=== PATIENT | female | born 1980 | race Two or more races ===

== ENCOUNTER 2024-11-21 03:26 | Inpatient (IN) | payer MEDICAID, SELFPAY ==
[2024-11-21] VITALS (25 sets, daily range): BP systolic 117–155; BP diastolic 58–87; PULSE 49–70; RESP 12–23; TEMP 36.7–37; O2SAT 82–100; BMI 33.6
--- NOTE | 2024-11-21 | XR_ITS ---
MRI abdomen, without contrast. MRCP Date and time of exam: January 21, 2025 CT head 09 hours INDICATIONS: Abdominal pain and vomiting beginning 2 days ago, significant exit hepatic biliary tract dilatation on CT abdomen pelvis study today Technique: Multiple axial and coronal images of the abdomen have been obtained with the Siemens 1.5T MRI scanner. Images obtained included T1 weighted transverse images, T2-weighted transverse images, T2-weighted transverse images fat-suppressed, T2 weighted haste fat suppressed transverse images, T1 weighted images, in and out of phase images, T2-weighted coronal images, breath hold, T2 weighted haze coronal images as well as T2 weighted coronal thick slab images, MRCP. Findings: Intrahepatic biliary tract dilatation Absent gallbladder Enlarged common hepatic common bile duct measuring up to 12 mm with fairly abrupt termination coronal image 11 of the distal common bile duct Dilated pancreatic duct measuring 5 mm Significant edema surrounding the pancreas extending into the lower abdomen No hydronephrosis Aorta normal size Spleen not enlarged IMPRESSION: Extensive extra hepatic biliary tract dilatation, common bile duct measuring up to 12 mm with abrupt termination distally and dilated pancreatic duct, recommend ERCP follow-up to exclude malignant stricture at the ampulla Acute pancreatitis
--- NOTE | 2024-11-21 03:46 | XR_ITS ---
Examination: CT abdomen and pelvis without contrast. Coronal 3-D reconstructions. Sagittal 2-D reconstructions. Date and time of exam:November 21, 2024 at 0824 hours INDICATIONS: Generalized abdominal pain with nausea vomiting today CTDI: vol (mGy): 10.6 DLP: (mGycm): 577 Technique: Axial images of the abdomen have been obtained, 3 mm slice thickness Intravenous contrast material has not been administered. Low dose protocols were performed. One or more of the following dose reduction techniques were used; automated exposure control, adjustment of the mA and/or KV according to patient size, use of iterative reconstruction technique. Findings: Mild intrahepatic biliary tract dilatation Absent gallbladder Common bile duct 12 mm Pancreas appears prominent on this noncontrast study with surrounding edema 2 mm lower pole right renal calculus No bowel obstruction 10 mm fat-containing umbilical hernia Normal appendix No diverticulitis 18 mm left ovarian follicular cyst No bladder mass or bladder calculi Grade 1 anterolisthesis L4 on L5 IMPRESSION: Intrahepatic biliary tract dilatation as well as extrahepatic biliary tract dilatation Acute pancreatitis, consider MRCP follow-up
--- NOTE | 2024-11-21 03:46 | PD.EDRME ---
Rapid Medical Screening Exam RME Arrival date/time: 11/21/24 03:26 This is a case of 44-year-old female with no medical history came in the emergency room due to abdominal pain nausea and vomiting for 2 days persistence of the symptoms thus patient decided to start consult here in the emergency room Chief Complaint: Abdominal Pain Time Seen by Provider: 11/21/24 03:45 Vital signs: Vital Signs Temperature 98.6 F 11/21/24 03:31 Pulse Rate 70 11/21/24 03:31 Respiratory Rate 19 11/21/24 03:31 Blood Pressure 155/82 H 11/21/24 03:31 Pulse Oximetry (%) 96 11/21/24 03:31 Oxygen Delivery Method Room Air 11/21/24 03:31
[2024-11-21] MEDS: ONDANSETRON ODT 4 MG TABRAP PO (04:23)
[2024-11-21] MEDS: MORPHINE SULF INJ 10 MG/ML VIAL 4 MG IM (04:23)
[2024-11-21 05:40] LABS: Collection Type, Urine Clean Catch
[2024-11-21 05:47] LABS: Basophils # (Auto) 0.0 Thou/mm3 (0.0-0.2); Basophils % (Auto) 0 % (0-2.5); Eosinophils # (Auto) 0.0 Thou/mm3 (0.0-0.5); Eosinophils % (Auto) 0 % (0-10); Hematocrit 38.7 % (36.0-46.0); Hemoglobin 12.8 g/dL (12.0-16.0); Immature Granulocytes Auto 0.08 Thou/mm3 (0.00-0.00); Lymphocytes # (Auto) 1.0 Thou/mm3 (1.0-4.8); Lymphocytes % (Auto) 6 % (10-50); Mean Corpuscular HGB Conc 33.1 g/dl (31.0-37.0); Mean Corpuscular Hemoglobin 27.6 pg (25.0-35.0); Mean Corpuscular Volume 84 fL (80-100); Monocytes # (Auto) 0.8 Thou/mm3 (0.0-0.8); Monocytes % (Auto) 5 % (0-12); Neutrophils # (Auto) 13.1 Thou/mm3 (1.8-7.7); Neutrophils % (Auto) 87 % (37-80); Nucleated Red Blood Cell # 0.00 Thou/mm3 (0.00-0.00); Nucleated Red Blood Cell % 0 /100 WBC (0); Platelet Count 215 Thou/mm3 (140-440); RDW Standard Deviation 44.5 fL (36.4-46.3); Red Blood Count 4.63 Miln/mm3 (4.00-5.20); White Blood Count 15.0 Thou/mm3 (3.6-11.0)
[2024-11-21 05:53] LABS: HCG Qualitative,Urine Negative
[2024-11-21 05:56] LABS: Bacteria,Urine Rare; Bilirubin,Urine 2+ (Negative); Blood,Urine Negative (Negative); Clarity,Urine Turbid (Clear/Hazy); Color,Urine Drk-Yellow (Lt Yel-Yel); Glucose, Urine Negative (Negative); Ketones,Urine Trace (Negative); Leukocyte Esterase,Urine Positive (Negative); Nitrite,Urine Negative (Negative); PH,Urine 7.0 (5.0-7.0); Protein,Urine Trace (Neg - Trace); RBC,Urine 6 /hpf (0-3); Specific Gravity,Urine 1.019 (1.001-1.035); Squamous Epithelial Cell,Urine 11 /hpf (0-5); Urobilinogen,Urine 2.0 mg/dL (0.0-1.0); WBC,Urine 25 /hpf (0-5)
[2024-11-21 06:25] LABS: Alanine Aminotransferase 663 U/L (10-49); Albumin, Serum 4.4 gm/dL (3.5-5.0); Albumin/Globulin Ratio 1.6 (1.2-2.2); Alkaline Phosphatase 140 U/L (46-116); Anion Gap 12 (7-16); Aspartate Amino Transferase 495 U/L (0-34); BUN/Creatinine Ratio 10 Ratio (12-20); Bilirubin,Total 3.6 mg/dL (0.3-1.2); Blood Urea Nitrogen 7 mg/dL (9-23); Calcium 10.0 mg/dL (8.3-10.6); Calcium (Corrected) 10.0 mg/dL (8.5-10.1); Carbon Dioxide 22.2 mMol/L (20.0-31.0); Chloride 106 mMol/L (98-107); Creatinine (Component) 0.7 mg/dL (0.6-1.3); Estimated Creatinine Clearance 104.5 mL/min (>60); Globulin 2.8 gm/dL (2.3-3.5); Glucose 203 mg/dL (74-106); Lipase > 3500 U/L (12-53); Osmolality,Calculated 283 (275-295); Potassium 3.7 mMol/L (3.4-5.1); Sodium 140 mMol/L (136-145); Total Protein 7.2 gm/dL (5.7-8.2); eGFR > 60 See Note
--- NOTE | 2024-11-21 07:19 | XR_ITS ---
Examination: Abdomen sonogram, Limited Date and time of exam: November 21, 2024 0750 hours INDICATIONS: Mid abdominal pain beginning 2 days ago, elevated liver function tests on laboratory examination today Technique: Real-time rosario scale transabdominal sonographic images of the upper abdomen obtained. Findings: Absent gallbladder Common bile duct 0.9 cm no definite stones Pancreatic head 2.8 cm, suspicious for edema, please see the CT abdomen pelvis report today Liver 14.6 cm irregular contour Normal hepatopedal portal venous flow Patent IVC IMPRESSION: Acute pancreatitis Enlarged common bile duct 0.9 cm, consider MRCP follow-up
--- NOTE | 2024-11-21 08:38 | PD.EDABDPN ---
ED Abdominal Pain RME/HPI General Chief Complaint: Abdominal Pain Stated complaint: ABD PAIN Time seen by provider: 11/21/24 03:45 Arrival date/time: 11/21/24 03:26 Limitations: no limitations RME / HPI RME / HPI narrative: 11/21/24 03:26 This is a case of 44-year-old female with no medical history came in the emergency room due to abdominal pain nausea and vomiting for 2 days persistence of the symptoms thus patient decided to start consult here in the emergency room DR. PALMA MAIN ED EVALUATION: 44 year old female s/p cholecystectomy 23 years ago otherwise no other stated medical history presents to the ED for abdominal pain beginning 2 days ago progressively worsening. Described as aching in sensation that has remained constant since onset and waxing and waning in severity. Accompanied by nausea and vomiting. Denies fevers, chills, chest pain, cough, shortness of breath, diarrhea, constipation, or urinary symptoms. Related Data Home Medications ?Medication ?Instructions ?Recorded ?Confirmed Unobtainable 10/24/17 10/24/17 Allergies Allergy/AdvReac Type Severity Reaction Status Date / Time No Known Allergies Allergy Unknown Uncoded 11/21/24 03:34 Review of Systems Review of Systems Systems Reviewed: All systems reviewed, normal except as documented Past Medical History Past Medical History CARDIAC: Negative Cardiac Disorders or Congestive Heart Failure RESPIRATORY: Negative Chronic Obstructive Pulmonary Disease (COPD) GENITOURINARY: Negative Renal Disease ENDOCRINE: Negative Diabetes Mellitus Type 1 or Diabetes Mellitus Type 2 Surgical History SURGICAL: Positive Hysterectomy and Section Social History SMOKING STATUS: Never smoker ED Exam General Limitations: Present no limitations General appearance: Present alert and other (appears to be in pain) Head Head exam: Present atraumatic, normocephalic and normal inspection Eye Eye exam: Present normal appearance and EOMI ENT ENT exam: Present normal exam, normal oropharynx and mucous membranes moist Neck Neck exam: Present normal inspection, full ROM and trachea midline Chest Chest inspection: Present normal inspection and symmetric chest wall rise Respiratory Respiratory exam: Present normal lung sounds bilaterally Cardiovascular Cardiovascular exam: Present regular rate, normal rhythm and normal heart sounds Abdominal Exam Abdominal exam: Present soft, tenderness (2+ tenderness over the upper abdomen) and normal bowel sounds; Absent guarding, rebound, rigidity or mass Extremities Exam Extremities exam: Present normal inspection and full ROM Back Exam Back exam: Present normal inspection and full ROM Neurological Exam Neurological exam: Present alert, oriented X3 and CN II-XII intact Psychiatric Psychiatric exam: Present normal affect and normal mood Skin Skin exam: Present warm, dry, intact and normal color Course Course Course Narrative: 1723: MRCP has resulted and shows extensive extra hepatic biliary tract dilatation with common bile duct abrupt termination distally and dilated pancreatic duct. Transfer order placed. 1800: Patient signed out to Dr. Palma pending transfer for ERCP. 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 Stat Cons 11/21/24 17:25 Active Transfer to another facility [Transfer/Discharge] Stat Discharge 11/21/24 17:[address] abdomen pelvis wo con Stat Exams 11/21/24 03:46 Completed MR MRCP Stat Exams 11/21/24 Completed US gall bladder Stat Exams 11/21/24 07:19 Completed CBC Stat Lab 11/21/24 05:33 Completed Comprehensive Metabolic Panel Stat Lab 11/21/24 05:33 Completed HCG Qualitative,Urine Stat Lab 11/21/24 05:30 Completed Lipase Stat Lab 11/21/24 05:33 Completed Urinalysis Stat Lab 11/21/24 05:30 Completed HYDROmorphone INJ [Dilaudid Inj] Med 11/21/24 08:48 Discontinued 1 mg IVP X1 ONE HYDROmorphone INJ [Dilaudid Inj] Med 11/21/24 14:34 Discontinued 1 mg IVP X1 ONE Morphine Inj Med 11/21/24 04:12 Discontinued 4 mg IM X1 ONE Ondansetron Inj [Zofran Inj] Med 11/21/24 08:48 Discontinued 4 mg IVP X1 ONE Ondansetron Inj [Zofran Inj] Med 11/21/24 14:34 Discontinued 4 mg IVP X1 ONE Ondansetron Odt [Zofran Odt] Med 11/21/24 04:12 Discontinued 4 mg PO X1 ONE Vital Signs Vital signs: Vital Signs Temperature 98.6 F 11/21/24 03:31 Pulse Rate 70 11/21/24 03:31 Respiratory Rate 19 11/21/24 03:31 Blood Pressure 155/82 H 11/21/24 03:31 Pulse Oximetry (%) 96 11/21/24 03:31 Oxygen Delivery Method Room Air 11/21/24 03:31 Pulse ox is 96% on room air which is adequate. Abdominal Pain MDM MDM Narrative MDM Narrative:: Zoe Salas, jose scribing for and in the presence of Dr. Palma. Patient data External records reviewed:: [facility] previous records (I reviewed ED visit on 10/24/2017 ) Clinical information provided by:: patient Social determinants that could affect healthcare access:: none Patient has the following chronic illnesses:: None reported How is presenting disease/condition affected by chronic disease/condition?: no chronic disease Evaluation data The following diagnostics were reviewed and interpreted by me:: lab results and radiology exam(s) Lab and/or radiology exams considered but not ordered:: None Interpretation Summary: Ordering Physician: Shelby Hess Date of Service: 11/21/24 Procedure(s): CT abdomen pelvis wo con Accession Number(s): [id number] cc: Ben Quigley MD; Jluis Lockhart MD; Shelby Hess~ Examination: CT abdomen and pelvis without contrast. Coronal 3-D reconstructions. Sagittal 2-D reconstructions. Date and time of exam:November 21, 2024 at 0824 hours INDICATIONS: Generalized abdominal pain with nausea vomiting today CTDI: vol (mGy): 10.6 DLP: (mGycm): 577 Technique: Axial images of the abdomen have been obtained, 3 mm slice thickness Intravenous contrast material has not been administered. Low dose protocols were performed. One or more of the following dose reduction techniques were used; automated exposure control, adjustment of the mA and/or KV according to patient size, use of iterative reconstruction technique. Findings: Mild intrahepatic biliary tract dilatation Absent gallbladder Common bile duct 12 mm Pancreas appears prominent on this noncontrast study with surrounding edema 2 mm lower pole right renal calculus No bowel obstruction 10 mm fat-containing umbilical hernia Normal appendix No diverticulitis 18 mm left ovarian follicular cyst No bladder mass or bladder calculi Grade 1 anterolisthesis L4 on L5 IMPRESSION: Intrahepatic biliary tract dilatation as well as extrahepatic biliary tract dilatation Acute pancreatitis, consider MRCP follow-up Dictated By: Jluis Lockhart MD Signed By: <Electronically signed by Jluis Lockhart MD in OV> 11/21/24 0944 Ordering Physician: Sampson Palma MD Date of Service: 11/21/24 Procedure(s): US gall bladder Accession Number(s): [id number] cc: Sampson Palma MD; Ben Quigley MD; Jluis Lockahrt MD~ Examination: Abdomen sonogram, Limited Date and time of exam: November 21, 2024 0750 hours INDICATIONS: Mid abdominal pain beginning 2 days ago, elevated liver function tests on laboratory examination today Technique: Real-time rosario scale transabdominal sonographic images of the upper abdomen obtained. Findings: Absent gallbladder Common bile duct 0.9 cm no definite stones Pancreatic head 2.8 cm, suspicious for edema, please see the CT abdomen pelvis report today Liver 14.6 cm irregular contour Normal hepatopedal portal venous flow Patent IVC IMPRESSION: Acute pancreatitis Enlarged common bile duct 0.9 cm, consider MRCP follow-up Dictated By: Jluis Lockhart MD Signed By: <Electronically signed by Jluis Lockhart MD in OV> 11/21/24 0957 Ordering Physician: Sampson Palma MD Date of Service: 11/21/24 Procedure(s): MR MRCP Accession Number(s): [id number] cc: Sampson Palma MD; Ben Quigley MD; Jluis Lockhart MD~ MRI abdomen, without contrast. MRCP Date and time of exam: January 21, 2025 CT head 09 hours INDICATIONS: Abdominal pain and vomiting beginning 2 days ago, significant exit hepatic biliary tract dilatation on CT abdomen pelvis study today Technique: Multiple axial and coronal images of the abdomen have been obtained with the Siemens 1.5T MRI scanner. Images obtained included T1 weighted transverse images, T2-weighted transverse images, T2-weighted transverse images fat-suppressed, T2 weighted haste fat suppressed transverse images, T1 weighted images, in and out of phase images, T2-weighted coronal images, breath hold, T2 weighted haze coronal images as well as T2 weighted coronal thick slab images, MRCP. Findings: Intrahepatic biliary tract dilatation Absent gallbladder Enlarged common hepatic common bile duct measuring up to 12 mm with fairly abrupt termination coronal image 11 of the distal common bile duct Dilated pancreatic duct measuring 5 mm Significant edema surrounding the pancreas extending into the lower abdomen No hydronephrosis Aorta normal size Spleen not enlarged IMPRESSION: Extensive extra hepatic biliary tract dilatation, common bile duct measuring up to 12 mm with abrupt termination distally and dilated pancreatic duct, recommend ERCP follow-up to exclude malignant stricture at the ampulla Acute pancreatitis Dictated By: Jluis Lockhart MD Signed By: <Electronically signed by Jluis Lockhart MD in OV> 11/21/24 1717 Medications / Prescriptions Medications or Prescriptions considered but not ordered:: None Medication administrations:: Medication Administration History Discontinued Medications Hydromorphone HCl (Hydromorphone Inj 2 Mg/Ml Vial) 1 mg IVP X1 ONE Stop: 11/21/24 08:49 Last Admin: 11/21/24 09:08 Dose: 1 mg Documented By: LOLA Hydromorphone HCl (Hydromorphone Inj 2 Mg/Ml Vial) 1 mg IVP X1 ONE Stop: 11/21/24 14:35 Last Admin: 11/21/24 14:44 Dose: 1 mg Documented By: LOLA Morphine Sulfate (Morphine Sulf Inj 10 Mg/Ml Vial) 4 mg IM X1 ONE Stop: 11/21/24 04:13 Last Admin: 11/21/24 04:23 Dose: 4 mg Documented By: DONNY Ondansetron HCl (Ondansetron Odt 4 Mg Tabrap) 4 mg PO X1 ONE; Protocol Stop: 11/21/24 04:13 Last Admin: 11/21/24 04:23 Dose: 4 mg Documented By: DONNY Ondansetron HCl (Ondansetron Inj 2 Mg/Ml Inj 2 Ml) 4 mg IVP X1 ONE; Protocol Stop: 11/21/24 08:49 Last Admin: 11/21/24 09:07 Dose: 4 mg Documented By: LOLA Ondansetron HCl (Ondansetron Inj 2 Mg/Ml Inj 2 Ml) 4 mg IVP X1 ONE; Protocol Stop: 11/21/24 14:35 Last Admin: 11/21/24 14:44 Dose: 4 mg Documented By: LOLA See above Consultations Consultation(s) initiated? (list below): No Diagnosis Differential diagnosis abdominal pain: abdominal pain, calculus of kidney, diverticulitis and pancreatitis Most likely diagnosis given after review of the tests above:: Acute pancreatitis Extrahepatic biliary duct tract dilatation Admission Indicated Admission indicated?: not indicated Explain why admission is indicated or not indicated:: Transfer for ERCP Admission Request Was there a request for admission?: No Disposition Plan Disposition Plan: other (specify) (Signed out to Dr. Ku pending transfer for ERCP ) Discharge Plan Prescriptions/Referrals Prescriptions/Med Rec: No Action Unobtainable Referrals: Ben Quigley MD [Primary Care Provider] - In 1 week Problem List Clinical Impression: Acute pancreatitis, Dilation of biliary tract Patient/Caregiver Discharge Instructions Print Language: Estonian
[2024-11-21] MEDS: ONDANSETRON INJ 2 MG/ML INJ 2 ML 4 MG IVP ×3 (09:07→19:31)
[2024-11-21] MEDS: HYDROmorphone INJ 2 MG/ML VIAL 1 MG IVP ×2 (09:08→14:44)
--- NOTE | 2024-11-21 14:30 | PC.NURSE ---
CALLED ESTHER IN MRI WHEN SHE WILL TAKE PT. SHE ASKED IF MRI SCREENING HAD BEEN DONE AND IT HAD BEEN DONE IN THE MORNING. SHE SAID SHE WOULD CHECK AGAIN.
--- NOTE | 2024-11-21 18:41 | PD.EDADDENDU ---
Emergency Room Addendum <Kim Quigley - Last Filed: 11/21/24 19:53> Addendum Narrative: I took over the care from previous shift physician, Dr. Fountain, at 6 PM on 11/21/24. See previous notes for complete H & P and ED course. I reviewed all diagnostic test results. Diagnoses include: Treatment here from me included Dilaudid and Zofran. I discussed the case with Dr. Lynn, power transformer repairer, and our hospitalist. About the presentation and exam and diagnostics and treatments here. And need of further care in the hospital. Will accept the patient Srinivasa Ku MD <Srinivasa Ku MD - Last Filed: 11/21/24 23:07> Addendum Narrative: I took over the care from previous shift physician, Dr. Fountain, at 6 PM on 11/21/24. See previous notes for complete H & P and ED course. I reviewed all diagnostic test results. Diagnoses include: Pancreatitis CBD obstruction LFT elevation I discussed the case with Dr. Lynn, our ERCP power transformer repairer, and our hospitalist. About the presentation and exam and diagnostics and treatments here. And need of further care in the hospital. Will accept the patient Srinivasa Ku MD
[2024-11-21] MEDS: HYDROmorphone INJ 2 MG/ML VIAL IVP (19:32)
--- NOTE | 2024-11-21 19:42 | PC.NURSE ---
report recieved from swathi SHERWOOD. pt resting wioth at bedside. pain med givenscll monitor. waiting for rm assignment.
--- NOTE | 2024-11-21 21:21 | PD.RESHP ---
Documentation for date of: 11/21/24 HPI History of Present Illness Chief complaint: N/V with abdominal pain History of present illness: 44 w/o F without significant PMHx presents with chief complaint of nausea, vomiting, progressively worsening abdominal pain x 2 days. Patient states she was in her usual state of health until 11/19/2024 when she woke up in the middle of the night with severe abdominal pain. Pain continued to progressively worsen since then. Patient also notes poor appetite during this time, only intaking tea and Gatorade. Patient also reports mild shortness of breath due to abdominal pain with deep inspiration. Patient has never experienced symptoms like this in the past. Patient denies fever, chills, chest pain, dysuria. ED COURSE: Labs significant for: WBC 15.0. BUN 7. Lipase greater than 3.5K. T. bili 3.6, AST 495, ALT 663, ALP 140. Imaging significant for: CT showing acute pancreatitis. MRCP showing 12 mm CBD dilation with abrupt termination. Patient received IV Dilaudid and Zofran in the ED. Afebrile, vitals WNL. Saturating well on room air. PMH: None PSH: , hysterectomy SH: Denies alcohol, tobacco, illicit drug use Allergies:?None Medications: None Review of Systems Review of Systems Systems Reviewed: All systems reviewed, normal except as documented Past Medical History Past Medical History Comments PMH COMMENT: PMH: None PSH: , hysterectomy SH: Denies alcohol, tobacco, illicit drug use Allergies:?None Medications: None Exam Vital Signs Temp Pulse Resp BP Pulse Ox O2 Del Method 98.3 F 64 16 142/85 H 100 Room Air 11/21/24 20:15 11/21/24 20:15 11/21/24 20:15 11/21/24 20:15 11/21/24 20:15 11/21/24 20:15 Narrative Exam PE: Gen: Well-developed and well-nourished. Mild distress. HEENT: NCAT, PERRLA, EOMI, MMM, anicteric conjunctivae. CVS: normal S1 and S2. RRR. No M/R/G. Resp: CTA B/L. No rhonchi, rales, crackles or wheezing. Abd: soft, non-distended. Significant tenderness epigastric region. MSK: Good ROM in BUE & BLE. No edema or rash. Neuro: CN II-XII grossly intact. Strength 5/5 in BUE & BLE. Alert and oriented x3. Psych: appropriate mood and affect. Results: Labs 11/21/24 05:33 11/21/24 05:33 Labs: Short CBC 11/21/24 Range/Units 05:33 WBC 15.0 H (3.6-11.0) Thou/mm3 Hgb 12.8 (12.0-16.0) g/dL Hct 38.7 (36.0-46.0) % Plt Count 215 (140-440) Thou/mm3 BMP 11/21/24 05:33 Sodium 140 Potassium 3.7 Chloride 106 Carbon Dioxide 22.2 BUN 7 L Creatinine 0.7 Glucose 203 H Calcium 10.0 Liver Function 11/21/24 Range/Units 05:33 Total Bilirubin 3.6 H (0.3-1.2) mg/dL AST 495 H (0-34) U/L ALT 663 H* (10-49) U/L Alkaline Phosphatase 140 H (46-116) U/L Albumin 4.4 (3.5-5.0) gm/dL Urine 11/21/24 Range/Units 05:30 Urine Color Drk-Yellow A (Lt Yel-Yel) Urine Clarity Turbid A (Clear/Hazy) Urine pH 7.0 (5.0-7.0) Ur Specific [place] 1.019 (1.001-1.035) Urine Protein Trace (Neg - Trace) Urine Glucose (UA) Negative (Negative) Quality Measures Quality Measures VTE prophylaxis Medications Home Medications and Allergies Home Medications ?Medication ?Instructions ?Recorded ?Confirmed ?Type Unobtainable 10/24/17 10/24/17 History Allergies Allergy/AdvReac Type Severity Reaction Status Date / Time No Known Allergies Allergy Unknown Uncoded 11/21/24 03:34 Visit Medications Acetaminophen (Acetaminophen Supp 650 Mg Supp) 650 mg NC Q6HR PRN PRN Reason: Fever > 100.4 or pain Stop: 12/21/24 21:12 Lactated Ringer's (Lactated Ringers) 1,000 mls @ 125 mls/hr IV .Q8H CECIL Stop: 11/22/24 21:14 Piperacillin/Tazobactam/Dextrose (Zosyn) 50 mls @ 100 mls/hr IV Q8HR CECIL Stop: 11/28/24 21:18 Morphine Sulfate (Morphine Sulf Inj 10 Mg/Ml Vial) 4 mg IVP Q4HR PRN PRN Reason: PAIN SCALE 7-10 (Severe Stop: 11/26/24 21:12 Ondansetron HCl (Ondansetron Inj 2 Mg/Ml Inj 2 Ml) 4 mg IVP Q4HR PRN; Protocol PRN Reason: NAUSEA OR VOMITING Stop: 12/21/24 21:12 Discontinued Medications Hydromorphone HCl (Hydromorphone Inj 2 Mg/Ml Vial) 1 mg IVP X1 ONE Stop: 11/21/24 08:49 Last Admin: 11/21/24 09:08 Dose: 1 mg Hydromorphone HCl (Hydromorphone Inj 2 Mg/Ml Vial) 1 mg IVP X1 ONE Stop: 11/21/24 14:35 Last Admin: 11/21/24 14:44 Dose: 1 mg Hydromorphone HCl (Hydromorphone Inj 2 Mg/Ml Vial) 2 mg IVP X1 ONE Stop: 11/21/24 18:50 Last Admin: 11/21/24 19:32 Dose: 2 mg Morphine Sulfate (Morphine Sulf Inj 10 Mg/Ml Vial) 4 mg IM X1 ONE Stop: 11/21/24 04:13 Last Admin: 11/21/24 04:23 Dose: 4 mg Ondansetron HCl (Ondansetron Odt 4 Mg Tabrap) 4 mg PO X1 ONE; Protocol Stop: 11/21/24 04:13 Last Admin: 11/21/24 04:23 Dose: 4 mg Ondansetron HCl (Ondansetron Inj 2 Mg/Ml Inj 2 Ml) 4 mg IVP X1 ONE; Protocol Stop: 11/21/24 08:49 Last Admin: 11/21/24 09:07 Dose: 4 mg Ondansetron HCl (Ondansetron Inj 2 Mg/Ml Inj 2 Ml) 4 mg IVP X1 ONE; Protocol Stop: 11/21/24 14:35 Last Admin: 11/21/24 14:44 Dose: 4 mg Ondansetron HCl (Ondansetron Inj 2 Mg/Ml Inj 2 Ml) 4 mg IVP X1 ONE; Protocol Stop: 11/21/24 18:50 Last Admin: 11/21/24 19:31 Dose: 4 mg Assessment & Plan Plan 44 w/o F without significant PMHx presents with chief complaint of nausea, vomiting, progressively worsening abdominal pain x 2 days, admitted for choledocholithiasis with gallstone pancreatitis. #Choledocholithiasis with acute liver injury #Gallstone pancreatitis Patient presents with chief complaint of abdominal pain with associated nausea and vomiting x 2 days. Lipase greater than 3.5 thousand, acute pancreatitis seen on CT. MRCP showed 12 mm CBD dilation with abrupt termination, suspect gallstone pancreatitis. BUN 7. In addition, patient has acute liver injury: T. bili 3.6, AST 495, ALT 6X3, ALP 140. Patient noted to have significant epigastric tenderness, improved with IV pain meds. Patient's had poor appetite since symptoms began. Patient denies fevers, chills. Dr. Lynn on board, plan for ERCP tomorrow morning. - IVF: LR at 125 mL/h x 3 L - Pain control with IV morphine - IV Zofran for nausea - Dr. Lynn consulted, appreciate recommendations - N.p.o. - Zosyn 3.375 g IV every 8 hours (started 11/21) DVT prophylaxis: SCDs GI prophylaxis: None Diet: N.p.o. Lines: Peripheral IV Code status: Full code Plan of care discussed with attending Dr. Bell. Javi Farias MD PGY?2 Attending Provider Attestation/Addendum I have examined the patient, reviewed labs and imaging findings, discussed the case with the resident(s), and reviewed entered orders. I agree with the plan of care as outlined in this note, with these additional summaries/recommendations: After examination of the patient and review of the clinical data, I feel that this patient needs admission to the hospital for further treatment and evaluation. Patient is a 44-year-old female with no significant past medical history who presents to [facility] emergency department on 11/21/2024 with chief complaint of intractable abdominal pain. Patient and patient's seen at bedside. She endorsed severe abdominal pain rated 10 out of 10 in severity on admission that has improved with IV pain medicines. Patient diagnosed with acute pancreatitis most likely secondary to gallstones, choledocholithiasis, and transaminitis. Patient meets 3 out of 3 diagnostic criteria for acute pancreatitis. Etiology most likely secondary to gallstones. BISAP score 0 points indicating less than 1% risk of mortality. Pierre-Imrie pancreatitis score 2 points indicating low risk for severe pancreatitis. Start 5 to 10 cc/kg of body weight per hour of IV maintenance fluids. As needed pain management. NPO. MRCP on admission showed common bile duct dilation measuring up to 12 mm with abrupt termination distally likely representing choledocholithiasis. Gastroenterology consulted by emergency room provider and recommends admission for ERCP. Leukocytosis present. Start IV antibiotic. Patient also found to have transaminitis and hyperbilirubinemia which is most likely secondary to choledocholithiasis. We will avoid hepatotoxic agents and hepatically dose medications if necessary. I anticipate improvement in transaminitis after ERCP. Patient updated on the plan and in agreement. All questions answered to satisfaction. Please see residents note for additional details and management. Dr. Ray MD
[2024-11-21] MEDS: RINGERS LACTATED 1000 ML 1,000 ML 125 ML IV (22:00)
[2024-11-21] MEDS: PIPER/TAZO 3.375 GM PREMIX 3.375 GM/50 ML BAG IV (22:00)
[2024-11-22] VITALS (9 sets, daily range): BP systolic 106–162; BP diastolic 59–99; PULSE 59–87; RESP 16–29; TEMP 36.3–36.7; O2SAT 91–97; BMI 34.0
[2024-11-22] MEDS: MORPHINE SULF INJ 10 MG/ML VIAL 4 MG IVP ×6 (01:46→22:37)
[2024-11-22] MEDS: PIPER/TAZO 3.375 GM PREMIX 3.375 GM/50 ML BAG IV ×3 (05:46→21:44)
[2024-11-22] MEDS: RINGERS LACTATED 1000 ML 1,000 ML 125 ML IV (05:46)
[2024-11-22 05:59] LABS: Basophils # (Auto) 0.0 Thou/mm3 (0.0-0.2); Basophils % (Auto) 0 % (0-2.5); Eosinophils # (Auto) 0.0 Thou/mm3 (0.0-0.5); Eosinophils % (Auto) 0 % (0-10); Hematocrit 37.1 % (36.0-46.0); Hemoglobin 12.2 g/dL (12.0-16.0); Immature Granulocytes Auto 0.09 Thou/mm3 (0.00-0.00); Lymphocytes # (Auto) 1.0 Thou/mm3 (1.0-4.8); Lymphocytes % (Auto) 6 % (10-50); Mean Corpuscular HGB Conc 32.9 g/dl (31.0-37.0); Mean Corpuscular Hemoglobin 27.8 pg (25.0-35.0); Mean Corpuscular Volume 85 fL (80-100); Monocytes # (Auto) 1.1 Thou/mm3 (0.0-0.8); Monocytes % (Auto) 7 % (0-12); Neutrophils # (Auto) 15.2 Thou/mm3 (1.8-7.7); Neutrophils % (Auto) 87 % (37-80); Nucleated Red Blood Cell # 0.00 Thou/mm3 (0.00-0.00); Nucleated Red Blood Cell % 0 /100 WBC (0); Platelet Count 222 Thou/mm3 (140-440); RDW Standard Deviation 46.3 fL (36.4-46.3); Red Blood Count 4.39 Miln/mm3 (4.00-5.20); White Blood Count 17.5 Thou/mm3 (3.6-11.0)
[2024-11-22 06:16] LABS: INR 1.0 (0.9-1.3); Partial Thromboplastin Time 21.8 Seconds (22.0-36.0); Prothrombin Time 11.4 Seconds (9.0-12.2)
[2024-11-22 06:35] LABS: Alanine Aminotransferase 451 U/L (10-49); Albumin, Serum 3.9 gm/dL (3.5-5.0); Albumin/Globulin Ratio 1.6 (1.2-2.2); Alkaline Phosphatase 182 U/L (46-116); Anion Gap 11 (7-16); Aspartate Amino Transferase 194 U/L (0-34); BUN/Creatinine Ratio 15 Ratio (12-20); Bilirubin,Total 4.0 mg/dL (0.3-1.2); Blood Urea Nitrogen 9 mg/dL (9-23); Calcium 9.1 mg/dL (8.3-10.6); Calcium (Corrected) 9.2 mg/dL (8.5-10.1); Carbon Dioxide 24.3 mMol/L (20.0-31.0); Cardiac Risk Estimate 2.5 RATIO (3.7-5.6); Chloride 106 mMol/L (98-107); Cholesterol 133 mg/dL (132-200); Creatinine (Component) 0.6 mg/dL (0.6-1.3); Estimated Creatinine Clearance 122.6 mL/min (>60); Globulin 2.4 gm/dL (2.3-3.5); Glucose 108 mg/dL (74-106); HDL Cholesterol 53 mg/dL (40-60); LDL Cholesterol,Calculated 61 mg/dL (0-130); Magnesium 2.0 mg/dL (1.6-2.6); Osmolality,Calculated 280 (275-295); Phosphorous 3.5 mg/dL (2.4-5.1); Potassium 3.6 mMol/L (3.4-5.1); Sodium 141 mMol/L (136-145); Total Protein 6.3 gm/dL (5.7-8.2); Triglycerides 93 mg/dL (30-150); eGFR > 60 See Note
--- NOTE | 2024-11-22 09:34 | PC.SS ---
Follow up note: ERCP today. Patient's status is showing self pay. SS spoke to Lidia, financial institution president who explained pt has [employer] and her facehseet has been updated.
--- NOTE | 2024-11-22 11:42 | ESPR_ITS ---
<Statement entered by Sascha Munoz MD - 11/22/24 18:53> Patient was seen and examined at bedside. I agree on the assessment and plan on this note as documented by resident Shawnee Casillas MD PGY1. 44-year-old female with past medical history as below admitted for gallstone pancreatitis, was evaluated by gastroenterology today per GI patient has likely passed her gallstone, recommend continuing IV fluid Ringer lactate at 250 cc/h, will trend CRP daily per GI recommendations. Will continue IV Zosyn, does have urinary tract infection. Diet advanced to clear liquid per GI recommendations, no ERCP indicated per gastroenterology. Disposition telemetry management of pancreatitis. Case discussed with attending Dr. Elizabeth Munoz MD PGY-2 Documentation for date of: 11/22/24 Subjective Subjective Interval history: Today patient was seen and examined at beside. She is in mild distress. Denies nausea, vomiting, shortness of breath and chest pain. Continue to endorse epigastric pain. AM labs reviewed. Significant for WBC 17.5. Vitals are within normal limit. Dr. Lynn consulted and finds no indication for ERCP at this time there is no evidence of choledocholithiasis. Will continue to manage patient with IV fluids and pain control. Started Piperacillin/tazobactam 3.375 (11/22)- Exam Vital Signs Temp Pulse Resp BP Pulse Ox O2 Del Method 97.8 F 68 16 118/59 L 94 L Room Air 11/22/24 08:00 11/22/24 08:00 11/22/24 08:00 11/22/24 08:00 11/22/24 08:00 11/22/24 08:00 Narrative Exam PE: Gen: Well-developed and well-nourished. Mild distress. HEENT: NCAT, PERRLA, EOMI, MMM, anicteric conjunctivae. CVS: normal S1 and S2. RRR. No M/R/G. Resp: CTA B/L. No rhonchi, rales, crackles or wheezing. Abd: soft, non-distended. Significant tenderness epigastric region. No megan sign, no greyturner sign MSK: Good ROM in BUE & BLE. No edema or rash. Neuro: CN II-XII grossly intact. Strength 5/5 in BUE & BLE. Alert and oriented x3. Psych: appropriate mood and affect. Objective Labs 11/22/24 05:12 11/22/24 05:12 Labs: Laboratory Results - last 24 hr 11/22/24 05:12 WBC 17.5 H RBC 4.39 Hgb 12.2 Hct 37.1 MCV 85 MCH 27.8 MCHC 32.9 RDW Std Deviation 46.3 Plt Count 222 Neut % (Auto) 87 H Lymph % (Auto) 6 L [place] % (Auto) 7 Eos % (Auto) 0 Baso % (Auto) 0 Neut # (Auto) 15.2 H Lymph # (Auto) 1.0 [place] # (Auto) 1.1 H Eos # (Auto) 0.0 Baso # (Auto) 0.0 Immature Gran # (Auto) 0.09 H Absolute Nucleated RBC 0.00 Immature Gran % 1 H Nucleated RBC % 0 PT 11.4 INR 1.0 APTT 21.8 L Sodium 141 Potassium 3.6 Chloride 106 Carbon Dioxide 24.3 Anion Gap 11 BUN 9 Creatinine 0.6 Estim Creat Clear Calc 122.6 eGFR > 60 BUN/Creatinine Ratio 15 Glucose 108 H D Calculated Osmolality 280 Calcium 9.1 Corrected Calcium 9.2 Phosphorus 3.5 Magnesium 2.0 Total Bilirubin 4.0 H AST 194 H ALT 451 H Alkaline Phosphatase 182 H D Total Protein 6.3 Albumin 3.9 D Globulin 2.4 Albumin/Globulin Ratio 1.6 Triglycerides 93 Cholesterol 133 LDL Cholesterol, Calc 61 HDL Cholesterol 53 Cholesterol/HDL Ratio 2.5 L Quality Measures Quality Measures VTE prophylaxis Assessment & Plan Assessment Current Active Medications: Generic Name Dose Route Start Last Admin Trade Name Jeffry PRN Reason Stop Dose Admin Acetaminophen 650 mg 11/21/24 21:13 Acetaminophen Supp 650 Mg Supp TN 12/21/24 21:12 Q6HR PRN Fever > 100.4 or pain 1-3 Lactated Ringer's 1,000 mls @ 125 mls/hr 11/21/24 21:15 11/22/24 05:46 Lactated Ringers IV 11/22/24 21:14 125 mls/hr .Q8H CECIL Administration Piperacillin/Tazobactam/Dextrose 3.375 gm in 50 mls @ 12.5 mls/hr 11/22/24 06:00 11/22/24 05:46 Zosyn IV 11/29/24 05:59 12.5 mls/hr Q8HR CECIL Administration Morphine Sulfate 4 mg 11/21/24 21:13 11/22/24 10:11 Morphine Sulf Inj 10 Mg/Ml Vial IVP 11/26/24 21:12 4 mg Q4HR PRN Administration PAIN SCALE 7-10 (Severe Ondansetron HCl 4 mg 11/21/24 21:13 Ondansetron Inj 2 Mg/Ml Inj 2 Ml IVP 12/21/24 21:12 Q4HR PRN NAUSEA OR VOMITING Protocol Plan 44-year-old female past medical significant for gestational diabetes, cholecystectomy presented to [facility] ED on 11/21/24 for nausea and vomiting, progressively worsening abdominal pain for 2 days. Admitted for acute pancreatitis management. # Acute pancreatitis 2/2 #Gallstones #Transaminitis Patient presents with chief complaint of abdominal pain with associated nausea and vomiting x 2 days. Lipase greater than 3.5 thousand, acute pancreatitis seen on CT. MRCP showed 12 mm CBD dilation with abrupt termination, suspect gallstone pancreatitis. BUN 7. In addition, patient has acute liver injury: T. bili 3.6, AST 495, ALT 6X3, ALP 140. Patient noted to have significant epigastric tenderness, improved with IV pain meds. Patient's had poor appetite since symptoms began. Patient denies fevers, chills. Dr. Lynn on board, no indication for ERCP since there is no evidence of choledocholithiasis.BISAP score 0 points indicating less than 1% risk of mortality. Kamrar-Imrie pancreatitis score 2 points indicating low risk for severe pancreatitis. Plan - IV Pain control with morphine 4mg IVP PRN - IV LR fuids - Check LFTs CBC daily - Trend CRP daily - Resume clier liquid diet - Continue to monitor vital - Continue Zofran for nausea - ERCP- no indication per GI # Urinary tract infection Patient is asymptomatic, but UA positive for leukocyte Esterase, Pyuria (WBC25) Plan -Continue Zosyn 3.375gm (11/22) Hospital management: Lines: peripheral IV Diet: Clear liquid diet GI prophylaxis: none DVT prophylaxis: SCDs Disposition: tele bed, choledocholithiasis with pancreatitis CODE STATUS: Full code Patient seen and assessed under supervision of attending physician and discuss with senior resident Dr. Munoz PGY-2 Shawnee Casillas MD PGY-1, Internal Medicine Attending Provider Attestation/Addendum I attest that I was physically present for the evaluation, physical examination, lab and imaging review of the patient with the residents. I discussed the case with the residents and agree with the findings and plans of care as documented above. At bedside today, patient continues to complain of abdominal pain mostly epigastric. Has severe tenderness on palpation but abdomen is soft, no guarding. WBC up trended to 17.5, bilirubin is also uptrending, AST and ALT are improving. Discussed with GI, recommended aggressive hydration for pancreatitis and hold off on ERCP at this time. Started on clear liquid diet, we will slowly advance as tolerated. Continues to be on analgesic regimen. We will also continue with IV Zosyn for UTI. Elizabeth Hyman MD
--- NOTE | 2024-11-22 12:15 | PC.SS ---
SS met with patient regarding her d/c plan. Pt is alert/oriented. Pt was admitted for Choledocholithiasis with Pancreatitis. Pt confirmed demographic and contact information is correct on facesheet. Pt resides with . Pt ambulates independently without assistance or DME. Pt is ok with all ADLs. 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 Patient?s pharmacy of choice is [facility] on [address] Pt named her , Ronal Patel medical decision maker if he is unable. Patient?s choice is to return home upon d/c. Pt states she is not diabetic and is not on dialysis. D/C plan: Return home Next of Kin: Ronal Patel, , phone# [phone] PCP: [facility] Address: Correct on facesheet
--- NOTE | 2024-11-22 13:07 | PC.NURSE ---
Dr. Lynn came in to speak with patient about cancelling ERCP procedure. stated they will watch for inflammation and left room. Patient had questions so this nurse was able to locate Resident Alexander to come back to patient's room and answer her questions. He answered her questions and informed her that she will continue ABX and fluids and will be monitored for 2 days. Patient stated that she understood.
--- NOTE | 2024-11-22 14:09 | PD.IMCONS ---
HPI Data of Consult Requesting Physician: Luis Bell MD Primary Care Provider: Ben Quigley MD Consult Narrative History of present illness: Chief complaint: Abdominal pain History of present illness: Patient is a 44-year-old female with obesity and metabolic syndrome presented with abdominal pain based on the workup including CAT scan/MRCP and blood work patient has gallstone pancreatitis. GI was called to evaluate the patient. Patient was seen and examined on the floor there is no indication to proceed with an ERCP at this time. Abdominal pain has improved since last night. No other associated symptoms at this time. cc:: cc: Luis Bell MD Review of Systems Review of Systems Narrative Review of Systems: All 12 systems reviewed and negative except positive pertinent symptoms as per history history and physical. Meds Home Medications and Allergies Home Medications ?Medication ?Instructions ?Recorded ?Confirmed ?Type No Known Home Medications 11/22/24 11/22/24 History Allergies Allergy/AdvReac Type Severity Reaction Status Date / Time No Known Allergies Allergy Unverified 11/22/24 08:15 Exam Vital Signs Temp Pulse Resp BP Pulse Ox O2 Del Method 97.7 F 77 16 127/64 95 Room Air 11/22/24 12:00 11/22/24 12:00 11/22/24 12:00 11/22/24 12:00 11/22/24 12:00 11/22/24 12:00 Routine Abdominal Exam Comments: Abdominal exam benign no tenderness or rebound tenderness no peritonitis. Results Labs 11/22/24 05:12 11/22/24 05:12 Labs: Short CBC 11/22/24 Range/Units 05:12 WBC 17.5 H (3.6-11.0) Thou/mm3 Hgb 12.2 (12.0-16.0) g/dL Hct 37.1 (36.0-46.0) % Plt Count 222 (140-440) Thou/mm3 BMP 11/22/24 05:12 Sodium 141 Potassium 3.6 Chloride 106 Carbon Dioxide 24.3 BUN 9 Creatinine 0.6 Glucose 108 H D Calcium 9.1 Liver Function 11/22/24 Range/Units 05:12 Total Bilirubin 4.0 H (0.3-1.2) mg/dL AST 194 H (0-34) U/L ALT 451 H (10-49) U/L Alkaline Phosphatase 182 H D (46-116) U/L Albumin 3.9 D (3.5-5.0) gm/dL Assessment and Plan Additional Assessment & Plan Additional Plan: Assessment: Gallstone pancreatitis Plan of care: Proceed with LR 250-20 4 to 48 hours There is no indication to proceed with the ERCP at this point as there is no evidence of choledocholithiasis. Check LFT and CBC daily Trend CRP daily No need to trace lipase daily Start clear liquid diet and advance as per toleration Patient needs to follow with Dr. Lynn's office in 2 to 4 weeks postdischarge Call GI with any question.
[2024-11-22 14:26] LABS: Alanine Aminotransferase 373 U/L (10-49); Albumin, Serum 3.8 gm/dL (3.5-5.0); Alkaline Phosphatase 170 U/L (46-116); Aspartate Amino Transferase 119 U/L (0-34); Bilirubin,Direct 1.0 mg/dL (0.0-0.3); Bilirubin,Total 1.9 mg/dL (0.3-1.2); C-Reactive Protein 6.1 mg/dL (0.0-0.9); Total Protein 6.2 gm/dL (5.7-8.2)
[2024-11-22] MEDS: RINGERS LACTATED 1000 ML 1,000 ML 250 ML IV ×3 (14:31→22:43)
[2024-11-22 16:34] LABS: C-Reactive Protein 7.0 mg/dL (0.0-0.9)
[2024-11-23] VITALS (11 sets, daily range): BP systolic 105–124; BP diastolic 60–72; PULSE 79–89; RESP 17–30; TEMP 36.8–37.8; O2SAT 93–96
[2024-11-23] MEDS: RINGERS LACTATED 1000 ML 1,000 ML 250 ML IV ×5 (02:36→23:30)
[2024-11-23] MEDS: MORPHINE SULF INJ 10 MG/ML VIAL 4 MG IVP ×2 (03:37→08:32)
[2024-11-23] MEDS: PIPER/TAZO 3.375 GM PREMIX 3.375 GM/50 ML BAG IV ×3 (05:00→22:05)
[2024-11-23 05:46] LABS: Basophils # (Auto) 0.0 Thou/mm3 (0.0-0.2); Basophils % (Auto) 0 % (0-2.5); Eosinophils # (Auto) 0.0 Thou/mm3 (0.0-0.5); Eosinophils % (Auto) 0 % (0-10); Hematocrit 33.0 % (36.0-46.0); Hemoglobin 11.0 g/dL (12.0-16.0); Immature Granulocytes Auto 0.11 Thou/mm3 (0.00-0.00); Lymphocytes # (Auto) 1.4 Thou/mm3 (1.0-4.8); Lymphocytes % (Auto) 8 % (10-50); Mean Corpuscular HGB Conc 33.3 g/dl (31.0-37.0); Mean Corpuscular Hemoglobin 28.1 pg (25.0-35.0); Mean Corpuscular Volume 84 fL (80-100); Monocytes # (Auto) 1.2 Thou/mm3 (0.0-0.8); Monocytes % (Auto) 7 % (0-12); Neutrophils # (Auto) 14.6 Thou/mm3 (1.8-7.7); Neutrophils % (Auto) 84 % (37-80); Nucleated Red Blood Cell # 0.00 Thou/mm3 (0.00-0.00); Nucleated Red Blood Cell % 0 /100 WBC (0); Platelet Count 174 Thou/mm3 (140-440); RDW Standard Deviation 46.7 fL (36.4-46.3); Red Blood Count 3.92 Miln/mm3 (4.00-5.20); White Blood Count 17.3 Thou/mm3 (3.6-11.0)
[2024-11-23 06:29] LABS: Alanine Aminotransferase 242 U/L (10-49); Albumin, Serum 3.4 gm/dL (3.5-5.0); Albumin/Globulin Ratio 1.5 (1.2-2.2); Alkaline Phosphatase 137 U/L (46-116); Anion Gap 11 (7-16); Aspartate Amino Transferase 57 U/L (0-34); BUN/Creatinine Ratio 10 Ratio (12-20); Bilirubin,Total 1.3 mg/dL (0.3-1.2); Blood Urea Nitrogen 6 mg/dL (9-23); Calcium 8.7 mg/dL (8.3-10.6); Calcium (Corrected) 9.2 mg/dL (8.5-10.1); Carbon Dioxide 24.3 mMol/L (20.0-31.0); Chloride 101 mMol/L (98-107); Creatinine (Component) 0.6 mg/dL (0.6-1.3); Estimated Creatinine Clearance 122.6 mL/min (>60); Globulin 2.2 gm/dL (2.3-3.5); Glucose 98 mg/dL (74-106); Magnesium 1.2 mg/dL (1.6-2.6); Osmolality,Calculated 269 (275-295); Phosphorous 2.9 mg/dL (2.4-5.1); Potassium 3.9 mMol/L (3.4-5.1); Sodium 136 mMol/L (136-145); Total Protein 5.6 gm/dL (5.7-8.2); eGFR > 60 See Note
[2024-11-23 06:48] LABS: Glucose Estimated Average 126 mg/dL (80-131); Hemoglobin A1C 6.0 % Hgb (4.8-6.0)
[2024-11-23] MEDS: Magnesium Sulfate 4 GM Ivpb 4 GM/50 ML BAG IV (08:48)
--- NOTE | 2024-11-23 09:44 | ESPR_ITS ---
<Statement entered by Luzmaria Mcneil MD - 11/24/24 14:59> Pt is seen at bedside, continues to complain of significant pain. ERCP is negative. Pt attempted advancing diet but was unable to tolerate. Will continue liquid diet today and will try to advance tomorrow. Patient was seen and examined by me personally. I have directly supervised and reviewed documentation by the team resident and agree with its findings. ------- Plan of care was discussed with the attending, Dr. Juventino Mcneil, PGY-2 Documentation for date of: 11/23/24 Subjective Subjective Interval history: No acute events overnight. Today patient was seen and examined at bedside. Vitals are stable. Saturating well on room. Improve epigastric pain, but reports pain clear liquid diet. Encourage patient to tell RN when she feels ready to eat solid food. Might advance diet later today. Was able to pass gas, but no bowel movement yet. Denies nausea, vomiting, shortness of breath and chest pain. AM reviewed. Repleted Mg. Leukocytosis improving. T.wendy downtrending. Reduce Morphine dose form 4gm to 2gm. Exam Vital Signs Temp Pulse Resp BP Pulse Ox O2 Del Method 98.2 F 89 18 114/72 93 L Room Air 11/23/24 08:00 11/23/24 08:00 11/23/24 08:00 11/23/24 08:00 11/23/24 08:00 11/23/24 08:00 Narrative Exam Physical Exam General: Awake and in no acute distress. Conversational and non-toxic appearing. HEENT: Normocephalic, atraumatic, mucous membranes moist. Heart: Regular rate and rhythm, normal S1 and S2, no murmurs. Lungs: Clear to auscultation with no wheezing or crackles. Abdomen: Mild tenderness epigastric region soft, nondistended, nontender, positive bowel sounds. ?No guarding or rebound tenderness Neurologic: Alert and oriented x3, no gross neurological deficit, and patient able to move all 4 extremities. Extremities: No edema. Skin: No rash or ecchymoses. Objective Labs 11/24/24 05:24 11/24/24 05:24 Labs: Laboratory Results - last 24 hr 11/22/24 11/22/24 11/23/24 13:37 15:05 04:41 WBC 17.3 H RBC 3.92 L Hgb 11.0 L Hct 33.0 L MCV 84 MCH 28.1 MCHC 33.3 RDW Std Deviation 46.7 H Plt Count 174 D Neut % (Auto) 84 H Lymph % (Auto) 8 L [place] % (Auto) 7 Eos % (Auto) 0 Baso % (Auto) 0 Neut # (Auto) 14.6 H Lymph # (Auto) 1.4 [place] # (Auto) 1.2 H Eos # (Auto) 0.0 Baso # (Auto) 0.0 Immature Gran # (Auto) 0.11 H Absolute Nucleated RBC 0.00 Immature Gran % 1 H Nucleated RBC % 0 Sodium 136 Potassium 3.9 Chloride 101 Carbon Dioxide 24.3 Anion Gap 11 BUN 6 L Creatinine 0.6 Estim Creat Clear Calc 122.6 eGFR > 60 BUN/Creatinine Ratio 10 L Glucose [address] Glu mg/dL 126 Hemoglobin A1c 6.0 Calculated Osmolality 269 L Calcium 8.7 Corrected Calcium 9.2 Phosphorus 2.9 Magnesium 1.2 L Total Bilirubin 1.9 H D 1.3 H D Direct Bilirubin 1.0 H AST 119 H 57 H ALT 373 H 242 H Alkaline Phosphatase 170 H 137 H D C-Reactive Prot, Quant 6.1 H 7.0 H Total Protein 6.2 5.6 L Albumin 3.8 3.4 L Globulin 2.2 L Albumin/Globulin Ratio 1.5 Quality Measures Quality Measures VTE prophylaxis Assessment & Plan Assessment Current Active Medications: Generic Name Dose Route Start Last Admin Trade Name Freq PRN Reason Stop Dose Admin Acetaminophen 650 mg 11/21/24 21:13 Acetaminophen Supp 650 Mg Supp DC 12/21/24 21:12 Q6HR PRN Fever > 100.4 or pain 1-3 Piperacillin/Tazobactam/Dextrose 3.375 gm in 50 mls @ 12.5 mls/hr 11/22/24 06:00 11/23/24 05:00 Zosyn IV 11/29/24 05:59 12.5 mls/hr Q8HR CECIL Administration Lactated Ringer's 1,000 mls @ 250 mls/hr 11/22/24 15:16 11/23/24 06:30 Lactated Ringers IV 12/22/24 15:15 250 mls/hr .Q4H CECIL Administration Magnesium Sulfate 4 gm in 50 mls @ 12.5 mls/hr 11/23/24 08:26 11/23/24 08:48 Magnesium Sulfate Ivpb IV 11/23/24 12:25 12.5 mls/hr X1 ONE Administration Morphine Sulfate 4 mg 11/21/24 21:13 11/23/24 08:32 Morphine Sulf Inj 10 Mg/Ml Vial IVP 11/26/24 21:12 4 mg Q4HR PRN Administration PAIN SCALE 7-10 (Severe Ondansetron HCl 4 mg 11/21/24 21:13 Ondansetron Inj 2 Mg/Ml Inj 2 Ml IVP 12/21/24 21:12 Q4HR PRN NAUSEA OR VOMITING Protocol Plan 44-year-old female past medical significant for gestational diabetes, cholecystectomy presented to [facility] ED on 11/21/24 for nausea and vomiting, progressively worsening abdominal pain for 2 days. Admitted for acute pancreatitis management. # Acute pancreatitis 2/2 #Gallstones #Transaminitis- improving Patient presents with chief complaint of abdominal pain with associated nausea and vomiting x 2 days. Lipase greater than 3.5 thousand, acute pancreatitis seen on CT. MRCP showed 12 mm CBD dilation with abrupt termination, suspect gallstone pancreatitis. BUN 7. In addition, patient has acute liver injury: T. bili 3.6, AST 495, ALT 6X3, ALP 140. Patient noted to have significant epigastric tenderness, improved with IV pain meds. Patient's had poor appetite since symptoms began. Patient denies fevers, chills. Dr. Lynn on board, no indication for ERCP since there is no evidence of choledocholithiasis.BISAP score 0 points indicating less than 1% risk of mortality. Pierre-Imrie pancreatitis score 2 points indicating low risk for severe pancreatitis. Plan - IV Pain control with morphine 4mg decreased to 2 mg IVP PRN - IV LR fuids - Check LFTs CBC daily - Trend CRP daily - Continue clear liquid diet, advance diet if tolerated - Continue to monitor vital - Continue Zofran for nausea - ERCP- no indication per GI # Urinary tract infection Patient is asymptomatic, but UA positive for leukocyte Esterase, Pyuria (WBC25) Plan -Continue Zosyn 3.375gm (11/22) #Pre-diabetes mellitus Patient has a history of gestational diabetes, not manage on medications. On admission glucose was 203. A1c 6.0 Plan - Advised to follow-up primary care outpatient - Diabetes education Hospital management: Lines: peripheral IV Diet: Clear liquid diet-advance as tolerated Bowel: NA GI prophylaxis: none DVT prophylaxis: SCDs Disposition: telebed acute pancreatitis of IV fluid resuscitation CODE STATUS: Full code Patient seen and assessed under supervision of attending physician Dr. Hyman and discuss with senior resident Dr. Mcneil PGY-2 Shawnee Casillas MD PGY-1, Internal Medicine Attending Provider Attestation/Addendum I attest that I was physically present for the evaluation, physical examination, lab and imaging review of the patient with the residents. I discussed the case with the residents and agree with the findings and plans of care as documented above. Elizabeth Hyman MD
[2024-11-23 10:35] LABS: C-Reactive Protein 18.2 mg/dL (0.0-0.9)
[2024-11-23] MEDS: MORPHINE SULF INJ 10 MG/ML VIAL 2 MG IVP ×3 (13:04→22:05)
--- NOTE | 2024-11-23 13:48 | ESPR_ITS ---
Documentation for date of: 11/23/24 Subjective Subjective Interval history: Patient was seen and examined today, tolerating clear liquid diet abdominal pain improved. Exam Vital Signs Temp Pulse Resp BP Pulse Ox O2 Del Method 98.5 F 82 17 119/60 95 Room Air 11/23/24 12:00 11/23/24 12:28 11/23/24 12:00 11/23/24 12:00 11/23/24 12:00 11/23/24 12:00 Routine Abdominal Exam Comments: Less tenderness on exam no rebound tenderness no sign of peritonitis. Abdominal exam benign. Objective Labs 11/23/24 04:41 11/23/24 04:41 Labs: Laboratory Results - last 24 hr 11/22/24 11/22/24 11/23/24 13:37 15:05 04:41 WBC 17.3 H RBC 3.92 L Hgb 11.0 L Hct 33.0 L MCV 84 MCH 28.1 MCHC 33.3 RDW Std Deviation 46.7 H Plt Count 174 D Neut % (Auto) 84 H Lymph % (Auto) 8 L [place] % (Auto) 7 Eos % (Auto) 0 Baso % (Auto) 0 Neut # (Auto) 14.6 H Lymph # (Auto) 1.4 [place] # (Auto) 1.2 H Eos # (Auto) 0.0 Baso # (Auto) 0.0 Immature Gran # (Auto) 0.11 H Absolute Nucleated RBC 0.00 Immature Gran % 1 H Nucleated RBC % 0 Sodium 136 Potassium 3.9 Chloride 101 Carbon Dioxide 24.3 Anion Gap 11 BUN 6 L Creatinine 0.6 Estim Creat Clear Calc 122.6 eGFR > 60 BUN/Creatinine Ratio 10 L Glucose [address] Glu mg/dL 126 Hemoglobin A1c 6.0 Calculated Osmolality 269 L Calcium 8.7 Corrected Calcium 9.2 Phosphorus 2.9 Magnesium 1.2 L Total Bilirubin 1.9 H D 1.3 H D Direct Bilirubin 1.0 H AST 119 H 57 H ALT 373 H 242 H Alkaline Phosphatase 170 H 137 H D C-Reactive Prot, Quant 6.1 H 7.0 H 18.2 H Total Protein 6.2 5.6 L Albumin 3.8 3.4 L Globulin 2.2 L Albumin/Globulin Ratio 1.5 Assessment & Plan A&P Narrative Assessment: Gallstone pancreatitis Plan of care: Proceed with LR 250-24 hours There is no indication to proceed with the ERCP at this point as there is no evidence of choledocholithiasis. Check LFT and CBC daily Trend CRP daily No need to trace lipase daily Start clear liquid diet and advance as per toleration Patient needs to follow with Dr. Lynn's office in 2 to 4 weeks postdischarge Call GI with any question. Time Spent With Patient Time: Total time spent is greater than 50% in coordination of care (as documented) at patient's floor/unit and/or counseling patient:
[2024-11-24] VITALS (9 sets, daily range): BP systolic 102–125; BP diastolic 56–73; PULSE 76–94; RESP 15–36; TEMP 36.4–37.2; O2SAT 92–98; BMI 34.0
[2024-11-24] MEDS: MORPHINE SULF INJ 10 MG/ML VIAL 2 MG IVP ×2 (02:17→08:21)
[2024-11-24] MEDS: RINGERS LACTATED 1000 ML 1,000 ML 250 ML IV ×2 (02:18→08:16)
[2024-11-24] MEDS: PIPER/TAZO 3.375 GM PREMIX 3.375 GM/50 ML BAG IV ×3 (05:39→21:08)
[2024-11-24 06:14] LABS: Basophils # (Auto) 0.0 Thou/mm3 (0.0-0.2); Basophils % (Auto) 0 % (0-2.5); Eosinophils # (Auto) 0.0 Thou/mm3 (0.0-0.5); Eosinophils % (Auto) 0 % (0-10); Hematocrit 29.8 % (36.0-46.0); Hemoglobin 9.7 g/dL (12.0-16.0); Immature Granulocytes Auto 0.10 Thou/mm3 (0.00-0.00); Lymphocytes # (Auto) 1.5 Thou/mm3 (1.0-4.8); Lymphocytes % (Auto) 10 % (10-50); Mean Corpuscular HGB Conc 32.6 g/dl (31.0-37.0); Mean Corpuscular Hemoglobin 27.7 pg (25.0-35.0); Mean Corpuscular Volume 85 fL (80-100); Monocytes # (Auto) 1.1 Thou/mm3 (0.0-0.8); Monocytes % (Auto) 8 % (0-12); Neutrophils # (Auto) 12.2 Thou/mm3 (1.8-7.7); Neutrophils % (Auto) 81 % (37-80); Nucleated Red Blood Cell # 0.00 Thou/mm3 (0.00-0.00); Nucleated Red Blood Cell % 0 /100 WBC (0); Platelet Count 183 Thou/mm3 (140-440); RDW Standard Deviation 46.1 fL (36.4-46.3); Red Blood Count 3.50 Miln/mm3 (4.00-5.20); White Blood Count 15.0 Thou/mm3 (3.6-11.0)
[2024-11-24 06:36] LABS: Alanine Aminotransferase 149 U/L (10-49); Albumin, Serum 3.4 gm/dL (3.5-5.0); Albumin/Globulin Ratio 1.4 (1.2-2.2); Alkaline Phosphatase 110 U/L (46-116); Anion Gap 10 (7-16); Aspartate Amino Transferase 29 U/L (0-34); BUN/Creatinine Ratio 10 Ratio (12-20); Bilirubin,Total 1.0 mg/dL (0.3-1.2); Blood Urea Nitrogen < 5 mg/dL (9-23); Calcium 8.3 mg/dL (8.3-10.6); Calcium (Corrected) 8.8 mg/dL (8.5-10.1); Carbon Dioxide 26.8 mMol/L (20.0-31.0); Chloride 103 mMol/L (98-107); Creatinine (Component) 0.5 mg/dL (0.6-1.3); Estimated Creatinine Clearance 147.1 mL/min (>60); Globulin 2.5 gm/dL (2.3-3.5); Glucose 99 mg/dL (74-106); Magnesium 1.8 mg/dL (1.6-2.6); Osmolality,Calculated 276 (275-295); Phosphorous 3.0 mg/dL (2.4-5.1); Potassium 3.6 mMol/L (3.4-5.1); Sodium 140 mMol/L (136-145); Total Protein 5.9 gm/dL (5.7-8.2); eGFR > 60 See Note
[2024-11-24] MEDS: Magnesium Sulfate 2 GM Ivpb 2 GM/50 ML BAG IV (09:36)
--- NOTE | 2024-11-24 14:17 | ESPR_ITS ---
<Statement entered by Luzmaria Mcneil MD - 11/25/24 16:21> Patient seen at bedside. Patient endorses to significant improvement in the pain and will advance diet and continue to monitor. If patient is able to tolerate oral diet and having bowel movement then will anticipate discharge tomorrow with antibiotics. Patient was seen and examined by me personally. I have directly supervised and reviewed documentation by the team resident and agree with its findings. ------- Plan of care was discussed with the attending, Dr. Boogie Mcneil, PGY-2 Documentation for date of: 11/24/24 Subjective Subjective Interval history: Acute events overnight. The patient was seen and examined at bedside. Vitals are stable, saturating well on room air. She reports improvement in pain. Diet advanced from clear liquid diet to regular diet. Patient is tolerating solid food. Denies nausea, vomiting, shortness of breath. Patient has not had bowel movement the past 2 days. Patient reported constipation medication, prefers to have bowel movement naturally. Held IV morphine 2 mg. Transition to acetaminophen 650mg p.o. as needed. AM labs reviewed. Magnesium repleted, potassium repleted. Exam Vital Signs Temp Pulse Resp BP Pulse Ox O2 Del Method 97.9 F 76 27 H 117/58 L 97 Room Air 11/24/24 12:00 11/24/24 12:00 11/24/24 12:00 11/24/24 12:00 11/24/24 12:00 11/24/24 12:00 Narrative Exam Physical Exam General: Awake and in no acute distress. Conversational and non-toxic appearing. HEENT: Normocephalic, atraumatic, mucous membranes moist. Heart: Regular rate and rhythm, normal S1 and S2, no murmurs. Lungs: Clear to auscultation with no wheezing or crackles. Abdomen: Mild tenderness epigastric region soft (resolving), nondistended, nontender, positive bowel sounds. ?No guarding or rebound tenderness Neurologic: Alert and oriented x3, no gross neurological deficit, and patient able to move all 4 extremities. Extremities: No edema. Skin: No rash or ecchymoses. Objective Labs 11/25/24 10:39 11/25/24 10:39 Labs: Laboratory Results - last 24 hr 11/24/24 05:24 WBC 15.0 H RBC 3.50 L Hgb 9.7 L Hct 29.8 L MCV 85 MCH 27.7 MCHC 32.6 RDW Std Deviation 46.1 Plt Count 183 Neut % (Auto) 81 H Lymph % (Auto) 10 [place] % (Auto) 8 Eos % (Auto) 0 Baso % (Auto) 0 Neut # (Auto) 12.2 H Lymph # (Auto) 1.5 [place] # (Auto) 1.1 H Eos # (Auto) 0.0 Baso # (Auto) 0.0 Immature Gran # (Auto) 0.10 H Absolute Nucleated RBC 0.00 Immature Gran % 1 H Nucleated RBC % 0 Sodium 140 Potassium 3.6 Chloride 103 Carbon Dioxide 26.8 Anion Gap 10 BUN < 5 L Creatinine 0.5 L Estim Creat Clear Calc 147.1 eGFR > 60 BUN/Creatinine Ratio 10 L Glucose 99 Calculated Osmolality 276 Calcium 8.3 Corrected Calcium 8.8 Phosphorus 3.0 Magnesium 1.8 Total Bilirubin 1.0 AST 29 ALT 149 H Alkaline Phosphatase 110 D Total Protein 5.9 Albumin 3.4 L Globulin 2.5 Albumin/Globulin Ratio 1.4 Quality Measures Quality Measures VTE prophylaxis Assessment & Plan Assessment Current Active Medications: Generic Name Dose Route Start Last Admin Trade Name Freq PRN Reason Stop Dose Admin Acetaminophen 650 mg 11/21/24 21:13 Acetaminophen Supp 650 Mg Supp ME 12/21/24 21:12 Q6HR PRN Fever > 100.4 or pain 1-3 Piperacillin/Tazobactam/Dextrose 3.375 gm in 50 mls @ 12.5 mls/hr 11/22/24 06:00 11/24/24 13:33 Zosyn IV 11/29/24 05:59 12.5 mls/hr Q8HR CECIL Administration Morphine Sulfate 1 mg 11/24/24 11:56 Morphine Sulf Inj 10 Mg/Ml Vial IVP 11/26/24 21:12 Q4HR PRN PAIN SCALE 7-10 (Severe Ondansetron HCl 4 mg 11/21/24 21:13 Ondansetron Inj 2 Mg/Ml Inj 2 Ml IVP 12/21/24 21:12 Q4HR PRN NAUSEA OR VOMITING Protocol Plan 44-year-old female past medical significant for gestational diabetes, cholecystectomy presented to [facility] ED on 11/21/24 for nausea and vomiting, progressively worsening abdominal pain for 2 days. Admitted for acute pancreatitis management. # Acute pancreatitis 2/2 #Gallstones #Transaminitis- improving Patient presents with chief complaint of abdominal pain with associated nausea and vomiting x 2 days. Lipase greater than 3.5 thousand, acute pancreatitis seen on CT. MRCP showed 12 mm CBD dilation with abrupt termination, suspect gallstone pancreatitis. BUN 7. In addition, patient has acute liver injury: T. bili 3.6, AST 495, ALT 6X3, ALP 140. Patient noted to have significant epigastric tenderness, improved with IV pain meds. Patient's had poor appetite since symptoms began. Patient denies fevers, chills. Dr. Lynn on board, no indication for ERCP since there is no evidence of choledocholithiasis. BISAP score 0 points indicating less than 1% risk of mortality. Pierre-Imrie pancreatitis score 2 points indicating low risk for severe pancreatitis Plan - IV Pain changed from IV morphine to acetaminophen 650 mg po prn - IV LR fuids, discontinue - Check LFTs CBC daily - Diet advanced to regular - Continue to monitor vital - Continue Zofran for nausea - ERCP- no indication per GI # Urinary tract infection Patient is asymptomatic, but UA positive for leukocyte Esterase, Pyuria (WBC25) Plan -Continue Zosyn 3.375gm (11/22)- #Pre-diabetes mellitus Patient has a history of gestational diabetes, not manage on medications. On admission glucose was 203. 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 Hyman and discuss with senior resident Dr. Mcneil PGY-2 Attending Provider Attestation/Addendum I attest that I was physically present for the evaluation, physical examination, lab and imaging review of the patient with the residents. I discussed the case with the residents and agree with the findings and plans of care as documented above. Elizabeth Hyman MD
--- NOTE | 2024-11-24 16:26 | PC.SS ---
rounding note: pending IV pending iv pain med, advance diet, possible d/c tomorrow.
[2024-11-25] VITALS (9 sets, daily range): BP systolic 110–122; BP diastolic 66–74; PULSE 66–81; RESP 15–21; TEMP 36.2–37.3; O2SAT 95–98; BMI 35.1
[2024-11-25] MEDS: PIPER/TAZO 3.375 GM PREMIX 3.375 GM/50 ML BAG IV (05:10)
[2024-11-25] MEDS: CIPROFLOXACIN HCL 250 MG TABLET 500 MG PO (10:37)
[2024-11-25 11:10] LABS: Basophils # (Auto) 0.0 Thou/mm3 (0.0-0.2); Basophils % (Auto) 0 % (0-2.5); Eosinophils # (Auto) 0.1 Thou/mm3 (0.0-0.5); Eosinophils % (Auto) 0 % (0-10); Hematocrit 31.5 % (36.0-46.0); Hemoglobin 10.5 g/dL (12.0-16.0); Immature Granulocytes Auto 0.11 Thou/mm3 (0.00-0.00); Lymphocytes # (Auto) 1.3 Thou/mm3 (1.0-4.8); Lymphocytes % (Auto) 10 % (10-50); Mean Corpuscular HGB Conc 33.3 g/dl (31.0-37.0); Mean Corpuscular Hemoglobin 28.2 pg (25.0-35.0); Mean Corpuscular Volume 85 fL (80-100); Monocytes # (Auto) 1.0 Thou/mm3 (0.0-0.8); Monocytes % (Auto) 8 % (0-12); Neutrophils # (Auto) 10.4 Thou/mm3 (1.8-7.7); Neutrophils % (Auto) 81 % (37-80); Nucleated Red Blood Cell # 0.00 Thou/mm3 (0.00-0.00); Nucleated Red Blood Cell % 0 /100 WBC (0); Platelet Count 258 Thou/mm3 (140-440); RDW Standard Deviation 45.4 fL (36.4-46.3); Red Blood Count 3.72 Miln/mm3 (4.00-5.20); White Blood Count 12.9 Thou/mm3 (3.6-11.0)
[2024-11-25 11:41] LABS: Alanine Aminotransferase 107 U/L (10-49); Albumin, Serum 4.0 gm/dL (3.5-5.0); Albumin/Globulin Ratio 1.3 (1.2-2.2); Alkaline Phosphatase 157 U/L (46-116); Anion Gap 9 (7-16); Aspartate Amino Transferase 15 U/L (0-34); BUN/Creatinine Ratio 8 Ratio (12-20); Bilirubin,Total 0.8 mg/dL (0.3-1.2); Blood Urea Nitrogen < 5 mg/dL (9-23); Calcium 9.2 mg/dL (8.3-10.6); Calcium (Corrected) 9.2 mg/dL (8.5-10.1); Carbon Dioxide 28.2 mMol/L (20.0-31.0); Chloride 103 mMol/L (98-107); Creatinine (Component) 0.6 mg/dL (0.6-1.3); Estimated Creatinine Clearance 122.2 mL/min (>60); Globulin 3.0 gm/dL (2.3-3.5); Glucose 118 mg/dL (74-106); Osmolality,Calculated 277 (275-295); Potassium 3.3 mMol/L (3.4-5.1); Sodium 140 mMol/L (136-145); Total Protein 7.0 gm/dL (5.7-8.2); eGFR > 60 See Note
[2024-11-25] MEDS: Magnesium Sulfate 4 GM Ivpb 4 GM/50 ML BAG IV (13:13)
--- NOTE | 2024-11-25 13:43 | ESDS_ITS ---
Planned Discharge Date 11/25/24 DS: Providers Provider Date of admission: 11/21/24 21:13 Primary care physician: Ben Quigley MD Admitting Provider: Luis Bell MD Attending Provider on Admission: Elizabeth Hyman MD Consults: 11/21/24 17:25 Referral - Quarrying Specialist Stat Service Needed for Transfer: GI consult, ERCP, acute pancreatitis 11/21/24 18:43 Consult to Gastroenterology Stat Comment: ERCP Consulting Provider: Kaden Motley 11/22/24 00:56 [facility] Referral - Knowledge Deficit Routine Comment: Positive screening for knowledge deficit needs. Attending Provider on DC: Elizabeth Hyman MD Discharging Provider: Elizabeth Hyman MD Anticipated date of discharge: 11/25/24 DS: Diagnosis Problem List Completed Was Problem List Reviewed/Reconciled?: Yes Hospital Course Hospital Course Hospital course: Summary: A 44 year old female with PMH significant for gestational diabetes, cholecys tectomy presented [facility] ED on 11/21/2024 for nausea and vomiting, progressively worse abdominal pain. Admitted for acute pancreatitis evaluation and management. Imaging CT abdomen showing acute pancreatitis, MRCP showing 12 mm CBD dilation. Patient was managed with IV Dilaudid and Zofran in the ED. GI consulted and stated the the patient will likely pass gallstone and recommend IV fluid. No indication for ERCP was needed. Patient was managed with IV antibiotics and symptoms of abdominal pain, nausea, vomiting improved significantly. Diet was advanced to regular diet patient, had a bowel movement and became stable to be discharged on 1 more day of oral ciprofloxacin for UTI. Also advised patient to follow-up with GI 1 to 2-week, get a repeat renal panel at PCP. Throughout the hospital course patient other problems were managed and her condition improved remarkably with progression of hospital course. Further plan to discharge the patient home with antibiotics course since she is hemodynamically stable to be discharged home to self care with the following instructions. Discharge recommendation: -Follow up with PCP within 1 week of discharge, if you do not have a primary care physician you can come see us at the [facility] by calling [phone] -You have been prescribed antibiotics for 1 more day, please complete the course -Please follow up outpatient with Dr. Lynn within 1 week after discharge -Return to the ED or call EMS if symptoms return and/or worsen Hospital Diagnoses: # Acute pancreatitis 2/2 #Gallstones #Transaminitis- improving # Urinary tract infection #Pre-diabetes mellitus Patient seen and assessed under supervision of attending physician Dr. Hyman. Shawnee Casillas MD PGY-1, Internal Medicine Time Spent with Patient Time attestation: Total time spent providing and/or coordinating discharge services: 33 min Time spent: Greater than 30 minutes Exam Vital Signs Temp Pulse Resp BP Pulse Ox O2 Del Method 98.5 F 69 21 H 122/66 96 Room Air 11/25/24 12:38 11/25/24 12:38 11/25/24 12:38 11/25/24 12:38 11/25/24 12:38 11/25/24 04:00 Narrative Exam Physical Exam General: Awake and in no acute distress. Conversational and non-toxic appearing. HEENT: Normocephalic, atraumatic, mucous membranes moist. Heart: Regular rate and rhythm, normal S1 and S2, no murmurs. Lungs: Clear to auscultation with no wheezing or crackles. Abdomen: Mild tenderness epigastric region soft (resolve), nondistended, nontender, positive bowel sounds. ?No guarding or rebound tenderness Neurologic: Alert and oriented x3, no gross neurological deficit, and patient able to move all 4 extremities. Extremities: No edema. Skin: No rash or ecchymoses. Discharge Plan Plan Patient Disposition: HOME (Self Care) Patient condition on transfer: Stable Care Plan Goals: -Follow up with PCP within 1 week of discharge, if you do not have a primary care physician you can come see us at the [facility] by calling [phone] -You have been prescribed antibiotics for 1 more day, please complete the course -Please follow up outpatient with Dr. Lynn within 1 week after discharge -Return to the ED or call EMS if symptoms return and/or worsen Dong un sequimiento con hooks medico de atencion primaria dentro de z[place] semana despues del jyothi. Si no tiene un medico de atencion primaria, puede venir a vernos a la clinica de pramod academica llamando al [phone]. Le graham recetado antibiotics por z[place] madeline mas, por favor complete el tratamiento. Por favor, dong un seguimiento ambulatorio con el Dr. Lynn dentro de z[place] semana despues del jyothi. Regrese al departamento de emergencias o llame a los servicios medicos de emergencia si los sintomas regresan y/o empeoran. Prescriptions/Referrals Referrals: Ben Quigley MD [Primary Care Provider] - Patient/Caregiver Discharge Instructions Education Materials: Pancreatitis Acute Dc Print Language: Ivorian Stand Alone Forms: [employer] Award Info., Patient Portal Info Letter Discharge Order Discharge Orders: Discharge (Routine); Ordered 11/25/24 Ordered By: Luzmaria Mcneil Quality Discharge Quality Measures VTE prophylaxis Attestestation MD Attestation I attest that I was physically present for the evaluation, physical examination, lab and imaging review of the patient with the residents. I discussed the case with the residents and agree with the findings and plans of care as documented above. Elizabeth Hyman MD
== END 2024-11-25 18:27 | disposition home or self-care (01) | DRG 282 ==
LOC: SERX 21:25 → SERHOLD 22:58 → S3SX 11-22 06:37
PROVIDERS: Internal Medicine Gastroenterology; Nurse Practitioner Family; Admitting Provider Student in an Organized Health Care Education/Training Program; Emergency Provider Emergency Medicine; PCP Family Medicine; Visit Provider Student in an Organized Health Care Education/Training Program
DX: K85.10 Biliary acute pancreatitis without necrosis or infection (principal); K80.71 Calculus of gallbladder and bile duct without cholecystitis with obstruction; N39.0 Urinary tract infection, site not specified; S36.119A Unspecified injury of liver, initial encounter; R63.0 Anorexia; Z90.49 Acquired absence of other specified parts of digestive tract; Z90.710 Acquired absence of both cervix and uterus; Z86.32 Personal history of gestational diabetes; R73.03 Prediabetes
CPT/HCPCS: 36415; 74176; 74181; 76705; 80053; 80061; 80076; 81001; 81025; 83036; 83690; 83735; 84100; 85025; 85610; 85730; 86140; 93225; 96361; 96365; 96375; 96376; 99284; J1171; J2270; J2405; J2543; J3475; J7120; Q0162; A9270